=== PATIENT | female | born 1960 | race Caucasian/White ===

== ENCOUNTER 2024-11-05 15:28 | Outpatient (CLI) | payer OTHER | END 2024-11-05 15:29 | disposition home or self-care (01) | LOC: CSHCP 15:28 | PROVIDERS: ATTEND Internal Medicine | DX: J44.9 Chronic obstructive pulmonary disease, unspecified (principal) | CPT/HCPCS: 94060; 94664; 94726; 94729; 94760 ==

== ENCOUNTER 2025-01-12 08:11 | Outpatient (CLI) | payer OTHER ==
[2025-01-12 09:37] LABS: Estimated GFR - POC 57.0
== END 2025-01-12 08:12 | disposition home or self-care (01) ==
LOC: CSHMRI 08:11
PROVIDERS: ATTEND Student in an Organized Health Care Education/Training Program
DX: R91.1 Solitary pulmonary nodule (principal); R90.82 White matter disease, unspecified
CPT/HCPCS: 36415; 70553; 76376; 82565